=== PATIENT | female | born 1990 | race Caucasian/White ===

== ENCOUNTER → 2017-01-07 | Outpatient (CLI) | payer BC | LOC: FIMAGING 13:35 | PROVIDERS: ATTEND Family Medicine | DX: M85.861 Other specified disorders of bone density and structure, right lower leg (principal); M25.561 Pain in right knee ==

== ENCOUNTER → 2017-02-03 | Outpatient (CLI) | payer BC | LOC: FCPNEURO 21:00 | PROVIDERS: ATTEND Student in an Organized Health Care Education/Training Program | DX: G47.33 Obstructive sleep apnea (adult) (pediatric) (principal) ==